=== PATIENT | female | born 1975 | race Caucasian/White ===

== ENCOUNTER 2018-06-16 10:17 | Emergency (ER) | payer MEDICAID ==
[~2018-06-16] VITALS: Ht 162.6 cm; Wt 88.2 kg
[~2018-06-16 10:17] MED LIST: ALBU18HF2 INH; BACL20TA PO; BUDE10.2 INH; CARB100T7 PO; DULO-31 PO; LURA60TA2 PO; OXCA300T4 PO; PRAZ2CAP2 PO
[2018-06-16 10:22] VITALS: BP 156/105
[2018-06-16] MEDS ORDERED: ACET-3067 PO (10:49)
[2018-06-16] MEDS ORDERED: HYDROcodone/acetaminophen 5mg/325mg tablet PO ONE (10:50)
== END 2018-06-16 11:09 | disposition home or self-care (01) ==
LOC: ER 10:18
DX: M25.561 Pain in right knee (principal); J45.909 Unspecified asthma, uncomplicated; G89.29 Other chronic pain; F41.9 Anxiety disorder, unspecified; F32.9 Major depressive disorder, single episode, unspecified; Z56.0 Unemployment, unspecified; Z79.899 Other long term (current) drug therapy
CPT/HCPCS: 73564; 99284

== ENCOUNTER 2018-10-25 10:30 | Outpatient (CLI) | payer MEDICAID ==
[2018-10-25 11:12] VITALS: BP 125/90
== END 2018-10-25 11:50 | disposition home or self-care (01) ==
LOC: ORTHO 10:30
PROVIDERS: ATTEND Nurse Practitioner Family
DX: S82.51XK Displaced fracture of medial malleolus of right tibia, subsequent encounter for closed fracture with nonunion (principal); F17.210 Nicotine dependence, cigarettes, uncomplicated; J45.909 Unspecified asthma, uncomplicated; F32.9 Major depressive disorder, single episode, unspecified; Z56.0 Unemployment, unspecified; W01.0XXD Fall on same level from slipping, tripping and stumbling without subsequent striking against object, subsequent encounter
CPT/HCPCS: 73610

== ENCOUNTER 2018-11-09 10:37 | Outpatient (CLI) | payer MEDICAID ==
[~2018-11-09] VITALS: Ht 162.6 cm; Wt 84.2 kg
[2018-11-09 10:37] VITALS: BP 122/83
[2018-11-11 16:51] VITALS: BP 122/83
== END 2018-11-09 11:32 | disposition home or self-care (01) ==
LOC: ORTHO 10:37
PROVIDERS: ATTEND Nurse Practitioner Family
DX: S82.51XK Displaced fracture of medial malleolus of right tibia, subsequent encounter for closed fracture with nonunion (principal); F17.210 Nicotine dependence, cigarettes, uncomplicated; J45.909 Unspecified asthma, uncomplicated; W01.0XXD Fall on same level from slipping, tripping and stumbling without subsequent striking against object, subsequent encounter
CPT/HCPCS: G0463

== ENCOUNTER 2018-12-03 11:15 | Day surgery (SDC) | payer MEDICAID ==
[2018-11-29 12:31] LABS: BASOPHILS % (AUTO) 0.3 % (0-1); EOSINOPHILS # (AUTO) 0.1 X10'3 (0-0.9); EOSINOPHILS % (AUTO) 0.8 % (0-6); LYMPHOCYTES # (AUTO) 1.5 X10'3 (1.1-4.8); LYMPHOCYTES % (AUTO) 20.3 % (21-51); MEAN CORPUSCULAR HEMOGLOBIN 31.8 PG (27.0-31.0); MEAN CORPUSCULAR HGB CONC 34.9 g/dL (33.0-36.5); MEAN CORPUSCULAR VOLUME 91.3 FL (78-98); MEAN PLATELET VOLUME 6.8 FL (7.4-10.4); MONOCYTES # (AUTO) 0.4 X10'3 (0-0.9); MONOCYTES % (AUTO) 4.9 % (2-12); NEUTROPHILS # (AUTO) 5.4 X10'3 (1.8-7.7); NEUTROPHILS % (AUTO) 73.7 % (42-75); PRE OP HEMATOCRIT 44.7 % (35.0-45.0); PRE OP HEMOGLOBIN 15.6 g/dL (12.0-16.0); PRE OP PLATELET COUNT 302 X10'3 (140-440)
[2018-11-29 12:44] LABS: ALBUMIN 4.2 G/DL (3.4-5.0); ALBUMIN/GLOBULIN RATIO 1.2 (1.1-1.5); ALKALINE PHOSPHATASE 97 IU/L (46-116); BLOOD UREA NITROGEN 13 MG/DL (7-18); BUN/CREATININE RATIO 14.8 (6.6-38.0); CALCIUM 9.2 MG/DL (8.5-10.1); CHLORIDE 104 MMOL/L (99-107); CREATININE 0.88 MG/DL (0.40-0.90); PRE OP ALT 54 U/L (30-65); PRE OP ANION GAP 6 (8-16); PRE OP AST 38 U/L (10-37); PRE OP BILIRUB, TOTAL 0.4 MG/DL (0.0-1.0); PRE OP GLUCOSE 111 MG/DL (70-104); PRE OP POTASSIUM 4.1 MMOL/L (3.4-5.1); PRE OP SODIUM 141 MMOL/L (135-145); TOTAL CARBON DIOXIDE 31.2 MMOL/L (24-32); TOTAL PROTEIN 7.6 G/DL (6.4-8.2); eGFR 71 ML/MIN
[~2018-12-03] VITALS: Ht 162.6 cm; Wt 80.7 kg
[~2018-12-03 11:15] MED LIST changes: -BACL20TA PO; -BUDE10.2 INH; -CARB100T7 PO; +CARB200T PO; +FLUT1DIS INH; -OXCA300T4 PO; -PRAZ2CAP2 PO; +albuterol 2.5 MG/3 ML nebule NEB ONE; +ceFAZolin 2gm in dextrose, iso 100 ML IV ONE; +famotidine 20mg tablet PO ONE; +ringers solution, lacted 1,000 ML IV SCH; +vancomycin inj 1,500 MG in normal saline 300ml IV soln IV ONE
[2018-12-03 12:13] VITALS: BP 121/72
[2018-12-03 12:14] VITALS: BP 121/72
[2018-12-03] MEDS ORDERED: LIDOcaine 1% (10mg/ml) 2ml vial ONE (12:24)
[2018-12-03] MEDS ORDERED: ceFAZolin 1000mg inj ONE (12:32)
[2018-12-03] MEDS ORDERED: ringers solution, lacted 1,000 ML IV SCH (15:57)
[2018-12-03] MEDS ORDERED: meperidine/PF 25mg/ml syringe IV PRN ×3 (16:00)
[2018-12-03] MEDS ORDERED: proCHLORperazine 10 MG/2 ml inj IV PRN (16:00)
[2018-12-03] MEDS ORDERED: ondansetron/PF 4mg/2ml inj IV PRN (16:00)
[2018-12-03] MEDS ORDERED: morphine 4 MG/ML inj SYRINge IV PRN ×2 (16:00)
--- NOTE | 2018-12-03 17:00 | NUR ---
DR TAO CALLED TO CANCEL SURGERY DUE TO BEING STUCK IN A LONG ORTHO CASE [facility]CROSS [facility]. PT STATES UNDERSTANDING. OFFICE WILL CALL TO RESCHEDULE. IV DC'D AND ALL BELONGINGS W/ PT UPON DC TO HOME INCLUDING GLASSES AND 2 RINGS.
== END 2018-12-03 17:00 | disposition home or self-care (01) ==
LOC: PAS 11:15
PROVIDERS: ATTEND Orthopaedic Surgery
DX: Z47.2 Encounter for removal of internal fixation device (principal); Z53.8 Procedure and treatment not carried out for other reasons; F17.210 Nicotine dependence, cigarettes, uncomplicated; F41.9 Anxiety disorder, unspecified; F43.10 Post-traumatic stress disorder, unspecified; Z79.899 Other long term (current) drug therapy
CPT/HCPCS: 36415; 80053; 85025; 93005; J0690; J3370; J3490; J7120

== ENCOUNTER 2018-12-22 05:35 | Day surgery (SDC) | payer MEDICAID ==
[2018-12-22] VITALS (9 sets, daily range): BP systolic 103–122; BP diastolic 64–81
[~2018-12-22] VITALS: Ht 162.6 cm; Wt 81.2 kg
[~2018-12-22 05:35] MED LIST changes: +FLUT12AE4 IH; -FLUT1DIS INH; +NALT50TA PO; -ceFAZolin 2gm in dextrose, iso 100 ML IV ONE; +cefazolin/dext.iso 2gm/100 ML IV ONE; -vancomycin inj 1,500 MG in normal saline 300ml IV soln IV ONE
[2018-12-22] MEDS ORDERED: LIDOcaine 1% (10mg/ml) 2ml vial ONE (06:20)
[2018-12-22 06:53] LABS: BASOPHILS % (AUTO) 0.6 % (0-1); EOSINOPHILS # (AUTO) 0.2 X10'3 (0-0.9); EOSINOPHILS % (AUTO) 2.9 % (0-6); LYMPHOCYTES % (AUTO) 18.3 % (21-51); MEAN CORPUSCULAR HEMOGLOBIN 31.8 PG (27.0-31.0); MEAN CORPUSCULAR HGB CONC 34.7 g/dL (33.0-36.5); MEAN CORPUSCULAR VOLUME 91.7 FL (78-98); MEAN PLATELET VOLUME 6.8 FL (7.4-10.4); MONOCYTES # (AUTO) 0.4 X10'3 (0-0.9); MONOCYTES % (AUTO) 6.7 % (2-12); NEUTROPHILS % (AUTO) 71.5 % (42-75); PRE OP HEMATOCRIT 39.1 % (35.0-45.0); PRE OP HEMOGLOBIN 13.5 g/dL (12.0-16.0); PRE OP PLATELET COUNT 252 X10'3 (140-440); RED BLOOD COUNT 4.26 X10'6 (4.20-5.60); RED CELL DISTRIBUTION WIDTH 13.5 % (11.5-14.5)
[2018-12-22 07:08] LABS: ALBUMIN 3.9 G/DL (3.4-5.0); ALBUMIN/GLOBULIN RATIO 1.3 (1.1-1.5); ALKALINE PHOSPHATASE 90 IU/L (46-116); BLOOD UREA NITROGEN 14 MG/DL (7-18); BUN/CREATININE RATIO 19.2 (6.6-38.0); CALCIUM 8.6 MG/DL (8.5-10.1); CHLORIDE 105 MMOL/L (99-107); CREATININE 0.73 MG/DL (0.40-0.90); PRE OP ALT 15 U/L (30-65); PRE OP ANION GAP 11 (8-16); PRE OP AST 12 U/L (10-37); PRE OP BILIRUB, TOTAL 0.2 MG/DL (0.0-1.0); PRE OP GLUCOSE 110 MG/DL (70-104); PRE OP SODIUM 141 MMOL/L (135-145); TOTAL CARBON DIOXIDE 25.1 MMOL/L (24-32); TOTAL PROTEIN 6.9 G/DL (6.4-8.2); eGFR 88 ML/MIN
[2018-12-22] MEDS ORDERED: ceFAZolin 1000mg inj ONE (07:29)
[2018-12-22] MEDS ORDERED: ROPIVAcaine 0.5% (5mg/ml) 30ml vial ONE (07:29)
[2018-12-22] MEDS ORDERED: midazolam 2 mg/2 ml injection ONE (07:31)
[2018-12-22] MEDS ORDERED: fentaNYL/PF 50MCG/1 ML 2ML syringe ONE (07:31)
[2018-12-22] MEDS ORDERED: LIDOcaine 2% (20mg/ml) 5ml vial ONE (07:32)
[2018-12-22] MEDS ORDERED: propofol inj 20 ML IV ONE (07:32)
[2018-12-22] MEDS ORDERED: dexamethasone sod phosphate 10mg/ml inj ONE (07:40)
[2018-12-22] MEDS ORDERED: ondansetron/PF 4mg/2ml inj ONE (07:40)
[2018-12-22] MEDS ORDERED: sevoflurane 250ml liquid IH ONE (07:40)
[2018-12-22] MEDS ORDERED: ketorolac trometh. 30mg/ml inj. ONE (07:56)
[2018-12-22] MEDS ORDERED: ringers solution, lacted 1,000 ML IV SCH (08:16)
[2018-12-22] MEDS ORDERED: ondansetron/PF 4mg/2ml inj IV PRN (08:20)
[2018-12-22] MEDS ORDERED: meperidine/PF 25mg/ml syringe IV PRN ×3 (08:20)
[2018-12-22] MEDS ORDERED: proCHLORperazine 10 MG/2 ml inj IV PRN (08:20)
[2018-12-22] MEDS ORDERED: morphine 4 MG/ML inj SYRINge IV PRN ×2 (08:20)
--- NOTE | 2018-12-22 08:30 | NUR ---
Received from OR via BED, accompanied by Anesthesiologist DR GARCIA-- and report given by Anesthesiolgist. PATIENT A&OX4, DENIES PAIN, V/S WNL, NEUROVASCULAR CHECKS INTACT, 20G PIV RUE, SCD ON, RIGHT ANKLE SPLINT DRESSING CDI
--- NOTE | 2018-12-22 09:40 | NUR ---
PATIENT A&OX4, DENIES PAIN, V/S WNL, NEUROVASCULAR CHECKS INTACT, 20G PIV RUE D/C, SCD OFF, DRESSING TO RIGHT ANKLE CDI ELEVATED WITH ICEBAG APPLIED. I HAVE REVIEWED D/C INSTRUCTIONS WITH PATIENT AND FAMILY AND THEY HAVE VERBALIZED UNDERSTANDING. PATIENT D/C HOME WITH ALL BELONGINGS AND FAMILY GAVE TRANSPORT HOME.
== END 2018-12-22 09:40 | disposition home or self-care (01) ==
LOC: PAS 05:35
PROVIDERS: ATTEND Orthopaedic Surgery
DX: T84.84XA Pain due to internal orthopedic prosthetic devices, implants and grafts, initial encounter (principal); Y83.8 Other surgical procedures as the cause of abnormal reaction of the patient, or of later complication, without mention of misadventure at the time of the procedure
CPT/HCPCS: 20680; 36415; 80053; 85025; A6222; A6449; J0690; J1100; J1885; J2001; J2250; J2405; J2704; J3010; J3490; A7000; J2795; J7120

== ENCOUNTER 2022-06-23 09:26 | Emergency (ER) | payer MEDICAID ==
[~2022-06-23] VITALS: Ht 162.6 cm; Wt 79.5 kg
[~2022-06-23 09:26] MED LIST changes: +LURA60TA PO; -LURA60TA2 PO; -albuterol 2.5 MG/3 ML nebule NEB ONE; -cefazolin/dext.iso 2gm/100 ML IV ONE; -famotidine 20mg tablet PO ONE; -ringers solution, lacted 1,000 ML IV SCH
[2022-06-23 09:31] VITALS: BP 126/71
== END 2022-06-23 12:24 | disposition left against medical advice (07) ==
LOC: ER 09:26
DX: M25.571 Pain in right ankle and joints of right foot (principal); Z53.21 Procedure and treatment not carried out due to patient leaving prior to being seen by health care provider
CPT/HCPCS: 73610

== ENCOUNTER 2022-11-24 10:32 | Emergency (ER) | payer MEDICAID | END 2022-11-24 11:41 | disposition left against medical advice (07) | LOC: ER 10:33 | DX: K08.89 Other specified disorders of teeth and supporting structures (principal); Z53.21 Procedure and treatment not carried out due to patient leaving prior to being seen by health care provider ==